=== PATIENT | female | born 1980 | race African-American/Black ===

== ENCOUNTER 2016-11-29 02:32 | Emergency (ER) | payer SELFPAY ==
[~2016-11-29] VITALS: Ht 157.5 cm; Wt 68.9 kg
[~2016-11-29 02:32] MED LIST: AMOX500C PO; TRAM-29 PO
[2016-11-29 03:27] VITALS: BP 119/76
[2016-11-29] MEDS ORDERED: AMOXICILLIN/K CLAV 875/125MG TABLET. PO ONE (03:30)
[2016-11-29] MEDS ORDERED: IBUPROFEN 600 MG TABLET. PO ONE (03:30)
--- NOTE | 2016-11-29 03:43 | ED.ADGEN ---
Past History Past Medical History: Cancer, Ovarian Cyst Past Surgical History: Cancer Surgery Alcohol Use: None Drug Use: None Adult General Chief Complaint Chief Complaint Facial swelling HPI HPI Patient is a 36-year-old -Greek female with cystic acne who presents with infected right submandibular comedone for the past 3 months. Patient states it's painful with difficulty sleeping. She has not taken antibiotics or been evaluated by her primary care provider. She there is no appreciated facial cellulitis or fluctuance. The patient denies any drainage from comedone. No medications or therapy stroke prior to ED arrival. No other symptoms or complaints. Last menstrual period was 3 weeks ago. Review of Systems Review of Systems ROS as per HPI. Current Medications Current Medications Current Medications Medications (Trade) Dose Ordered Sig/Radha Start Time Stop Time Status Last Admin Dose Admin Amoxicillin/ Clavulanate Potassium (Augmentin 875/ 125mg) 1 tab 1X ONCE 11/29/16 03:30 11/29/16 03:31 DC 11/29/16 03:27 1 TAB Ibuprofen (Motrin) 600 mg 1X ONCE 11/29/16 03:30 11/29/16 03:31 DC 11/29/16 03:27 600 MG Allergies Allergies Allergies Coded Allergies Type Severity Reaction Last Updated Verified No Known Drug Allergies 04/05/16 No Physical Exam Physical Exam Constitutional: Well developed, well nourished, no acute distress, non-toxic appearance. HENT: Normocephalic, atraumatic, infected right submandibular, comedone without fluctuance or cellulitis or drainage, bilateral external ears normal, oropharynx moist, no oral exudates, nose normal. Eyes: PERRLA, EOMI. Neck: Normal range of motion. Current Patient Data Vital Signs Vital Signs Date Time Temp Pulse Resp B/P Pulse Ox O2 Delivery O2 Flow Rate FiO2 11/29/16 02:43 98.2 104 20 100 Room Air EKG EKG [] Radiology/Procedures Radiology/Procedures [] Impressions: infected comedone with cystic acne Course & Med Decision Making Course & Med Decision Making Pertinent Labs and Imaging studies reviewed. (See chart for details) [Motrin and abx prescription provided. PCP follow up recommended.] Final Impression Final Impression [1. Infected comedone 2. Cystic acne] Problems: Dragon Disclaimer Dragon Disclaimer This electronic medical record was generated, in whole or in part, using a voice recognition dictation system. JUAN JOSE DILL DO Nov 29, 2016 03:43
== END 2016-11-29 03:27 | disposition home or self-care (01) ==
LOC: ER 02:32
DX: L70.0 Acne vulgaris (principal)
CPT/HCPCS: 99283

== ENCOUNTER 2017-02-01 17:09 | Emergency (ER) | payer SELFPAY ==
[~2017-02-01] VITALS: Ht 157.5 cm; Wt 71.7 kg
[~2017-02-01 17:09] MED LIST changes: -TRAM-29 PO; +TRAM-48 PO
--- NOTE | 2017-02-01 17:35 | PHYS DOC ---
General Chief Complaint: ANXIETY/PANIC ATTACK Stated Complaint: CHEST PAIN Time Seen by MD: 17:33 Source: patient Exam Limitations: no limitations Problems: History of Present Illness Initial Comments Patient is a 36-year-old male who comes to the ED complaining of panic attack and anxiety. Patient states that she's been having relationship difficulties with her significant other and for the last 3 days they have been arguing. She states that when they argue she starts to feel short of breath she feels chest tightness and as if she might . She says as soon as she gets away from the situation and starts to calm down her symptoms resolved. She is a smoker but denies other coronary artery disease risk factors. She denies arm or neck symptoms no diaphoresis nausea vomiting or dizziness. Timing/Duration: intermittent, other Severity: severe Modifying Factors: improves with rest Associated Symptoms: chest pain, shortness of breath Allergies: Coded Allergies: No Known Drug Allergies (Unverified , 02/01/17) Past Medical History Medical History: other (cancer, ovarian cyst) Surgical History: noncontributory (tubal ligation) Social History Smoker: cigarettes Alcohol: none Drugs: none Review of Systems Constitutional: denies chills, denies diaphoresis, denies fever, denies malaise Respiratory: see HPI, denies cough, denies orthopnea, denies wheezing Cardiovascular: chest pain, denies palpitations, denies syncope Gastrointestinal: denies diarrhea, denies nausea, denies vomiting Genitourinary: denies dysuria, denies frequency, denies hematuria Musculoskeletal: denies back pain, denies joint swelling, denies neck pain Psychiatric/Neurological: denies headache, denies numbness, denies paresthesia Hematologic/Lymphatic: denies blood clots, denies easy bleeding, denies easy bruising Physical Exam General Appearance: mild distress (anxious agitated) Eyes: bilateral eye normal inspection, bilateral eye PERRL, bilateral eye EOMI Ear, Nose, Throat: hearing grossly normal, normal ENT inspection, normal pharynx Neck: non-tender, supple Respiratory: normal breath sounds, no respiratory distress Cardiovascular: normal peripheral pulses, no edema Gastrointestinal: non tender, soft Back: no CVA tenderness, no vertebral tenderness Extremities: non-tender, normal inspection Neurologic/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 I offered patient chest pain workup including labs imaging IV and possible inpatient admission for observation. Patient refuses states her symptoms are anxiety related. She refuses meds in the ED as she wants to go home with a clear head but requests a prescription for a short course of medication should she need them. I discussed the treatment plan she expressed agreement and understanding see departure. Departure Time of Disposition: 17:58 Disposition: 01 HOME, SELF-CARE Diagnosis: panic attack, tobaccoism Condition: STABLE Patient Instructions: Anxiety and Panic Attacks, [id number], Smoking Cessation, Tips For Success Additional Instructions: As discussed you have refused further workup to lie wait for chest pain. You have stated certainty that you feel your symptoms are mood related. Stop smoking seek medical assistance if necessary. Avoid conflict stay in a safe place. Prescription: Alprazolam 0.25 mg quantity 10 Follow-up with your doctor next week for recheck. Return to ED with new or changing symptoms or if you change your mind and would like further evaluation for chest discomfort. BECKA ROY DO Feb 01, 2017 17:35
[2017-02-01 17:38] VITALS: BP 133/95
--- NOTE | 2017-02-01 17:58 | EKG ---
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 RI6.01 Unconfirmed report No previous ECG available for comparison Electronically Signed On 02-03-2017 9:55:43 CDT by Erasto Moreno
== END 2017-02-01 18:12 | disposition home or self-care (01) ==
LOC: ER 17:09
DX: F41.0 Panic disorder [episodic paroxysmal anxiety] (principal); F17.210 Nicotine dependence, cigarettes, uncomplicated
CPT/HCPCS: 93005; 99283-25

== ENCOUNTER 2017-06-23 07:40 | Emergency (ER) | payer SELFPAY ==
[~2017-06-23] VITALS: Ht 157.5 cm; Wt 76.2 kg
[2017-06-23 07:51] VITALS: BP 143/110
[2017-06-23] MEDS ORDERED: AZITHROMYCIN 250 MG TABLET. PO ONE (08:00)
[2017-06-23] MEDS ORDERED: OXYM30SP NS (08:06)
[2017-06-23] MEDS ORDERED: ALBU6.7H IH (08:06)
[2017-06-23] MEDS ORDERED: AZIT250T6 PO (08:06)
[2017-06-23] MEDS ORDERED: NAPR275T59 PO (08:06)
--- NOTE | 2017-06-23 08:06 | PHYS DOC ---
Past History Past Medical History: Bronchitis Past Surgical History: No Surgical History, Tubal ligation, Other Smoking: Cigarettes, Greater than 1 pack/day Alcohol Use: None Drug Use: None Adult General Chief Complaint Chief Complaint: COUGH HPI HPI sHe is a pleasant 36-year-old female with a 6 week history of productive cough. Patient admits that she smokes daily and although she has had no fevers or document chills she's had a productive cough. It's been green mucus with some slight streaks of blood on occasion. She has chest pain only with coughing. At this point she has no pain. Patient denies any exertional dyspnea, night sweats , weight loss or other symptoms. She has 3 kids at home with similar symptoms. She denies any recent antibiotics and she does admit she's been treated for bronchitis in the past. She also started a new job at [employer] recently. Review of Systems Review of Systems Constitutional: Denies fever or chills [] Eyes: Denies change in visual acuity, redness, or eye pain [] HENT: She does have some nasal congestion or sore throat with cough. Respiratory: She does have a productive cough but no shortness of breath Cardiovascular: No additional information not addressed in HPI [] GI: Denies abdominal pain, nausea, vomiting, bloody stools or diarrhea [] : Denies dysuria or hematuria [] Musculoskeletal: Denies back pain or joint pain [] Integument: Denies rash or skin lesions [] Neurologic: Denies headache, focal weakness or sensory changes [] Endocrine: Denies polyuria or polydipsia [] Allergies Allergies Allergies Coded Allergies Type Severity Reaction Last Updated Verified No Known Drug Allergies 06/23/17 No Physical Exam Physical Exam Of the vital signs recorded on the chart patient noted to be mildly tachycardic but not hypoxic not tachypnea or febrile. Constitutional: Well developed, well nourished, no acute distress, non-toxic appearance. [] HENT: Normocephalic, atraumatic, bilateral external ears normal, oropharynx moist, she exhibits mild erythema but no oral exudates, nose normal. [] Eyes: PERRLA, EOMI, conjunctiva normal, no discharge. [] Neck: Normal range of motion, no tenderness, supple, no stridor. [] Cardiovascular:Heart rate regular rhythm, no murmur [] Lungs & Thorax: She has coarse rhonchi at the right base no expiratory wheeze no accessory muscle use and retractions. Abdomen: Bowel sounds normal, soft, no tenderness, no masses, no pulsatile masses. [] Skin: Warm, dry, no erythema, no rash. [] Back: No tenderness, Neurologic: Alert and oriented X 3, normal motor function, normal sensory function, no focal deficits noted. [] Psychologic: Affect normal, judgement normal, mood normal. [] Current Patient Data Vital Signs Vital Signs Date Time Temp Pulse Resp B/P (MAP) Pulse Ox O2 Delivery O2 Flow Rate FiO2 06/23/17 07:51 98.4 109 16 100 Room Air EKG EKG []EKG timed 8:06 AM read by me 06/23/2017 demonstrates a heart rate of 106 there is a pediatric QRS this is a normal sinus rhythm tenderness tachycardia with a IL interval 134 which is normal QRS which is normal 74, QTC of 405 which is normal patient has no ST segment or T-wave changes consistent with acute coronary ischemia this is sinus tachycardia noted changes. Radiology/Procedures Radiology/Procedures [] Course & Med Decision Making Course & Med Decision Making Pertinent Labs and Imaging studies reviewed. (See chart for details) Patient with coarse rhonchi at the right base with smoking history. She is mildly tachycardic on arrival which may be secondary to lack of sleep EKG will be completed as well as a dose of azithromycin here in the emergency about it. We've elected not do chest x-ray to save on cost and well as radiation. Patient will be treated empirically as a bronchitis with an appropriate medication allergy to be acquired pneumonia as well with close follow-up with her primary care doctor. [] Dragon Disclaimer Dragon Disclaimer This chart was dictated in whole or in part using Voice Recognition software in a busy, high-work load, and often noisy Emergency Department environment. It may contain unintended and wholly unrecognized errors or omissions. Departure Departure: Impression: Primary Impression: Bronchitis Disposition: HOME, SELF-CARE Condition: IMPROVED Referrals: PCP,NO (PCP) Patient Instructions: Acute Bronchitis, Smoking Cessation, Smoking, You Can Quit, [id number] Additional Instructions: My discharge plan Follow up: In addition patient is asked to followup with their primary doctor, within a week for followup examination and to address patient's ongoing medical conditions. Because patient does not have a regular medical doctor, a local physician Resource Sheet will be provided to establish care primary care. Patient is advised that in the Emergency Department primary complaints are addressed and only in light of known signs and symptoms. Patient should return immediately to the emergency department if new signs and symptoms develop or patient's condition worsens in any way. At time of discharge patient was in stable condition and had verbalized understanding of the discharge instructions. Scripts Naproxen Sodium (NAPROXEN SODIUM) 275 Mg Tablet 275 MG PO BID for 7 Days, #14 TAB Prov: VIVEK MONROY MD 06/23/17 Azithromycin (AZITHROMYCIN TABLET) 250 Mg Tablet 250 MG PO DAILY for ANTI-BIOTIC for 5 Days, #5 TAB 0 Refills Please take 2 times the first day Please take one tablet day 2 through 5. Prov: VIVEK MONROY MD 06/23/17 Albuterol Sulfate (PROVENTIL HFA INHALER) 6.7 Gm Hfa.aer.ad 1-2 PUFF IH PRN Q4HRS Y for WHEEZING for 7 Days, INHALER 0 Refills Please dispense inhaler with a spacer Prov: VIVEK MONROY MD 06/23/17 Oxymetazoline Hcl (AFRIN) 30 Ml [place] 30 ML NS QID for 3 Days, SPRAY Prov: VIVEK MONROY MD 06/23/17 VIVEK MONROY MD Jun 23, 2017 08:06
--- NOTE | 2017-06-23 08:12 | EKG ---
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
== END 2017-06-23 08:20 | disposition home or self-care (01) ==
LOC: ER 07:40
DX: J40 Bronchitis, not specified as acute or chronic (principal); F17.210 Nicotine dependence, cigarettes, uncomplicated
CPT/HCPCS: 93005; 99283; J0456